=== PATIENT | female | born 2000 ===

== ENCOUNTER → 2023-09-12 | Outpatient (CLI) | payer MEDICAID ==
[2023-09-12 13:00] VITALS: BP 131/70; PULSE 101; RESP 16; O2SAT 97
[2023-09-12 13:14] VITALS: BP 131/70; PULSE 101
[2023-09-12] MEDS: DOBUTamine 1000MCG/ML 250 ML IV ONE ×2 (13:16→14:00)
[2023-09-12 14:14] VITALS: BP 140/71; PULSE 113
[2023-09-12 14:17] VITALS: BP 127/63; PULSE 142
[2023-09-12 14:19] VITALS: BP 127/63; PULSE 154
[2023-09-12 14:47] VITALS: BP 132/59; PULSE 94; RESP 20; O2SAT 100
== END | disposition home or self-care (01) ==
LOC: Rad HDHVI 12:55
PROVIDERS: ATTEND Internal Medicine Cardiovascular Disease
DX: E66.09 Other obesity due to excess calories (principal); Z98.84 Bariatric surgery status
CPT/HCPCS: 93005; 93350; G0463; J1250

== ENCOUNTER → 2023-09-20 | Outpatient (CLI) | payer MEDICAID | END | disposition home or self-care (01) | LOC: Rad HDHVI 13:27 | PROVIDERS: ATTEND Internal Medicine Cardiovascular Disease | DX: R60.9 Edema, unspecified (principal) | CPT/HCPCS: 93970 ==